=== PATIENT | female | born 1965 | race African-American/Black ===

== ENCOUNTER 2021-02-03 16:20 | Emergency (ER) | payer MEDICAID ==
[~2021-02-03] VITALS: Ht 175.3 cm; Wt 65.0 kg
[2021-02-03] MEDS ORDERED: MAGNESIUM/ALUMINUM HYDROXIDE/SIMETHICONE 30ML UDC PO STA (18:21)
[2021-02-03] MEDS ORDERED: SODIUM CHLORIDE 0.9% 1,000 ML IV ONE (18:30)
[2021-02-03 19:04] LABS: BASOPHILS % 0.7 % (0.0-2.0); EOSINOPHILS % 1.2 % (0.0-5.0); HEMATOCRIT. 36.8 % (36.0-48.0); HEMOGLOBIN. 12.5 g/dL (12.0-16.0); LYMPHOCYTES % 36.7 % (20.0-50.0); MEAN CORPUSCULAR HEMOGLOBIN 28.7 pg (28.0-32.0); MEAN CORPUSCULAR VOLUME 84.9 fL (81.0-99.0); MEAN PLATELET VOLUME 8.7 fl (7.4-10.4); MONOCYTES % 6.3 % (2.0-8.0); NEUTROPHILS % 55.1 % (40.0-76.0); PLATELET 69 x1000/uL (130-400); RED BLOOD CELL COUNT 4.34 mill/uL (4.2-5.4); RED CELL DISTRIBUTION WIDTH 19.1 % (11.6-14.6)
[2021-02-03 19:13] LABS: CHLORIDE 100 mEq/L (98-107)
[2021-02-03 19:27] LABS: B-HCG QUANTITATIVE 2 mIU/mL (<3)
[2021-02-03 19:34] LABS: ETHANOL BLOOD 497 mg/dL
[2021-02-03 22:38] VITALS: BP 121/80
== END 2021-02-03 22:00 | disposition home or self-care (01) ==
LOC: ER 16:20
DX: R10.12 Left upper quadrant pain (principal); F10.129 Alcohol abuse with intoxication, unspecified; K59.00 Constipation, unspecified; R11.10 Vomiting, unspecified; Y90.8 Blood alcohol level of 240 mg/100 ml or more
CPT/HCPCS: 36415; 74176; 80053; 80320; 83690; 84702; 85025; 99284; J7030; G0480

== ENCOUNTER 2021-06-06 19:01 | Inpatient (IN) | payer MEDICAID ==
[~2021-06-06] VITALS: Ht 154.2 cm; Wt 75.7 kg
[~2021-06-06 19:01] MED LIST: NEPVIT PO; THIA100T72 PO
[2021-06-06 20:38] LABS: CLARITY URINE CLOUDY (CLEAR); COLOR URINE DARK YELLOW (YELLOW); KETONES URINE NEGATIVE (NEGATIVE); LEUKOCYTE ESTERASE URINE TRACE (NEGATIVE); NITRITE URINE POSITIVE (NEGATIVE); OCCULT BLOOD URINE NEGATIVE (NEGATIVE); PROTEIN URINE NEGATIVE (NEGATIVE); SPECIFIC GRAVITY URINE 1.025 (1.005-1.030)
[2021-06-06 23:34] LABS: CHLORIDE 102 mEq/L (98-107)
[2021-06-06] MEDS ORDERED: FUROSEMIDE 20MG/2ML VIAL IVP ONE (23:45)
[2021-06-07] MEDS ORDERED: CLONIDINE 0.1MG TABLET PO PRN (00:15)
[2021-06-07] MEDS ORDERED: LORAZEPAM 2MG/ML CPJ IV PRN (00:15)
[2021-06-07] MEDS ORDERED: IPRATROPIUM/ALBUTEROL 0.5-3(2.5)MG/3ML NEB NEB PRN (00:15)
[2021-06-07] MEDS ORDERED: MAGNESIUM/ALUMINUM HYDROXIDE/SIMETHICONE 30ML UDC PO PRN (00:15)
[2021-06-07] MEDS ORDERED: MORPHINE SULFATE 2 MG/ML CPJ (NOT FOR IM USE) IV PRN (00:15)
[2021-06-07] MEDS ORDERED: ACETAMINOPHEN 650MG/20.3ML UDC GT PRN (00:15)
[2021-06-07] MEDS ORDERED: ONDANSETRON HCL 4MG/2ML INJ IV PRN (00:15)
[2021-06-07 00:27] LABS: BASOPHILS % 0.3 % (0.0-2.0); EOSINOPHILS % 0.8 % (0.0-5.0); HEMATOCRIT. 25.8 % (36.0-48.0); HEMOGLOBIN. 8.9 g/dL (12.0-16.0); LYMPHOCYTES % 18.4 % (20.0-50.0); MEAN CORPUSCULAR HEMOGLOBIN 34.2 pg (28.0-32.0); MEAN CORPUSCULAR VOLUME 99.4 fL (81.0-99.0); NEUTROPHILS % 71.5 % (40.0-76.0); RED BLOOD CELL COUNT 2.59 mill/uL (4.2-5.4); RED CELL DISTRIBUTION WIDTH 18.2 % (11.6-14.6)
[2021-06-07 00:45] LABS: MEAN PLATELET VOLUME 7.8 fl (7.4-10.4); PLATELET 149 x1000/uL (130-400)
[2021-06-07] MEDS ORDERED: NALOXONE HCL 0.4MG/ML VIAL IV PRN (00:45)
[2021-06-07] MEDS ORDERED: FOLIC ACID 1 MG, THIAMINE HCL 100 MG in SODIUM CHLORIDE 0.9% 1,000 ML IV NR (01:00)
[2021-06-07] MEDS: MULTIVITAMINS,THER W-MINERALS TABLET PO SCH (01:35)
[2021-06-07 09:00] VITALS: BP 108/73
[2021-06-07] MEDS ORDERED: FUROSEMIDE 40MG/4ML VIAL IV SCH (09:00)
[2021-06-07] MEDS ORDERED: ENOXAPARIN 40MG/0.4ML SYR SUBCUT SCH (09:00)
[2021-06-07 12:00] VITALS: BP 121/78
[2021-06-07 12:49] LABS: INR 1.9; PROTHROMBIN TIME 19.1 sec (9.6-11.0)
[2021-06-07] MEDS: CEFTRIAXONE 1,000 MG in DEXTROSE 5% WATER 50 ML IV SCH (12:52)
[2021-06-07] MEDS: SPIRONOLACTONE 50MG TABLET PO SCH (12:52)
[2021-06-07 13:07] LABS: HEPATITIS B SURFACE ANTIGEN NEGATIVE
[2021-06-07 16:00] VITALS: BP 123/70
[2021-06-07] MEDS: FUROSEMIDE 40MG/4ML VIAL IV SCH (16:30)
[2021-06-07] MEDS: HYDROCODONE/ACETAMINOPHEN 5/325MG TABLET PO PRN (16:35)
[2021-06-07 20:00] VITALS: BP 114/68
[2021-06-08] VITALS: BP 125/72
[2021-06-08] MEDS: HYDROCODONE/ACETAMINOPHEN 5/325MG TABLET PO PRN (01:07)
[2021-06-08 04:00] VITALS: BP 127/70
[2021-06-08 06:29] LABS: BASOPHILS % 0.5 % (0.0-2.0); EOSINOPHILS % 1.3 % (0.0-5.0); HEMATOCRIT. 23.9 % (36.0-48.0); HEMOGLOBIN. 8.2 g/dL (12.0-16.0); LYMPHOCYTES % 22.1 % (20.0-50.0); MEAN CORPUSCULAR HEMOGLOBIN 34.4 pg (28.0-32.0); MEAN CORPUSCULAR VOLUME 99.8 fL (81.0-99.0); MEAN PLATELET VOLUME 8.1 fl (7.4-10.4); MONOCYTES % 9.5 % (2.0-8.0); NEUTROPHILS % 66.6 % (40.0-76.0); PLATELET 145 x1000/uL (130-400); RED BLOOD CELL COUNT 2.39 mill/uL (4.2-5.4); RED CELL DISTRIBUTION WIDTH 18.2 % (11.6-14.6)
[2021-06-08 07:46] LABS: CHLORIDE 102 mEq/L (98-107)
[2021-06-08 08:00] VITALS: BP 142/77
[2021-06-08] MEDS: MULTIVITAMINS,THER W-MINERALS TABLET PO SCH (08:21)
[2021-06-08] MEDS: SPIRONOLACTONE 50MG TABLET PO SCH (08:21)
[2021-06-08] MEDS: CEFTRIAXONE 1,000 MG in DEXTROSE 5% WATER 50 ML IV SCH (08:21)
[2021-06-08] MEDS: FUROSEMIDE 40MG/4ML VIAL IV SCH (08:22)
[2021-06-08] MEDS ORDERED: POTASSIUM CHLORIDE 20MEQ TABLET SR PO NR (09:00)
[2021-06-08] MEDS ORDERED: MAGNESIUM OXIDE 400MG TABLET PO SCH (09:00)
[2021-06-08] MEDS ORDERED: LEVO500T89 MT (10:00)
[2021-06-08] MEDS ORDERED: ALD50 PO (10:00)
[2021-06-08] MEDS ORDERED: THIA100T72 PO (10:00)
[2021-06-08] MEDS ORDERED: FURO-151 MT (10:00)
[2021-06-08] MEDS ORDERED: PHYTONADIONE 10MG/ML AMP SUBCUT SCH (10:45)
[2021-06-08 11:41] VITALS: BP 142/77
== END 2021-06-08 13:05 | disposition home or self-care (01) ==
LOC: ER 19:01 → MICUSO 23:52 → 8WST 06-07 09:00
PROVIDERS: ADMIT Internal Medicine Nephrology; ATTEND Internal Medicine Nephrology
DX: K74.60 Unspecified cirrhosis of liver (principal); E43 Unspecified severe protein-calorie malnutrition; D68.9 Coagulation defect, unspecified; E87.1 Hypo-osmolality and hyponatremia; R18.8 Other ascites; N39.0 Urinary tract infection, site not specified; R74.01 Elevation of levels of liver transaminase levels; Z20.822 Contact with and (suspected) exposure to COVID-19; D64.9 Anemia, unspecified; F10.20 Alcohol dependence, uncomplicated; Z79.899 Other long term (current) drug therapy; Z90.49 Acquired absence of other specified parts of digestive tract; Z87.891 Personal history of nicotine dependence; Z68.31 Body mass index [BMI] 31.0-31.9, adult
CPT/HCPCS: 36415; 71045; 76700; 80048; 80053; 81003; 83735; 83880; 84100; 84484; 85025; 86705; 86709; 86803; 87340; 87426; 93005; 99285; J0696; J1650; J1940; J2270; J3411; J3490; J7030; J7040; J7060

== ENCOUNTER 2021-12-02 21:56 | Emergency (ER) | payer MEDICAID ==
[~2021-12-02] VITALS: Ht 167.6 cm; Wt 64.0 kg
[~2021-12-02 21:56] MED LIST changes: +ALD50 PO; +FURO-151 MT; +LEVO500T89 MT
[2021-12-02 23:42] LABS: BASOPHILS % 0.8 % (0.0-2.0); EOSINOPHILS % 1.6 % (0.0-5.0); HEMATOCRIT. 32.4 % (36.0-48.0); HEMOGLOBIN. 10.9 g/dL (12.0-16.0); LYMPHOCYTES % 34.9 % (20.0-50.0); MEAN CORPUSCULAR HEMOGLOBIN 29.3 pg (28.0-32.0); MEAN PLATELET VOLUME 8.9 fl (7.4-10.4); MONOCYTES % 12.4 % (2.0-8.0); NEUTROPHILS % 50.3 % (40.0-76.0); PLATELET 84 x1000/uL (130-400); RED BLOOD CELL COUNT 3.72 mill/uL (4.2-5.4); RED CELL DISTRIBUTION WIDTH 19.6 % (11.6-14.6)
[2021-12-02 23:50] LABS: CHLORIDE 109 mEq/L (98-107)
[2021-12-03 00:21] LABS: ETHANOL BLOOD 457 mg/dL
[2021-12-03 01:15] LABS: CLARITY URINE CLEAR (CLEAR); COLOR URINE YELLOW (YELLOW); KETONES URINE NEGATIVE (NEGATIVE); LEUKOCYTE ESTERASE URINE TRACE (NEGATIVE); NITRITE URINE NEGATIVE (NEGATIVE); OCCULT BLOOD URINE NEGATIVE (NEGATIVE); PH URINE 6.5 (4.5-8.0); PROTEIN URINE NEGATIVE (NEGATIVE); SPECIFIC GRAVITY URINE 1.004 (1.005-1.030)
[2021-12-03] MEDS ORDERED: ACETAMINOPHEN 325MG TABLET PO ONE (01:15)
[2021-12-03 03:39] VITALS: BP 142/90
== END 2021-12-03 03:44 | disposition home or self-care (01) ==
LOC: ER 21:56
DX: R10.13 Epigastric pain (principal); F10.229 Alcohol dependence with intoxication, unspecified; Y90.8 Blood alcohol level of 240 mg/100 ml or more; M79.18 Myalgia, other site; D69.6 Thrombocytopenia, unspecified; D53.9 Nutritional anemia, unspecified; R79.89 Other specified abnormal findings of blood chemistry; Z87.19 Personal history of other diseases of the digestive system
CPT/HCPCS: 36415; 80053; 80320; 81003; 85025; 99283; G0480

== ENCOUNTER 2022-03-16 17:26 | Emergency (ER) | payer MEDICAID ==
[~2022-03-16] VITALS: Ht 175.3 cm; Wt 60.0 kg
[~2022-03-16 17:26] MED LIST changes: -LEVO500T89 MT; +LEVO500T90 MT
[2022-03-17] MEDS ORDERED: ONDANSETRON 4MG ODT PO ONE (03:30)
[2022-03-17 04:24] LABS: HEMOGLOBIN. 12.2 g/dL (12.0-16.0); MEAN CORPUSCULAR HEMOGLOBIN 29.8 pg (28.0-32.0); MEAN CORPUSCULAR VOLUME 90.2 fL (81.0-99.0); PLATELET 134 x1000/uL (130-400); RED CELL DISTRIBUTION WIDTH 18.5 % (11.6-14.6)
[2022-03-17 04:25] LABS: CLARITY URINE CLEAR (CLEAR); COLOR URINE DARK YELLOW (YELLOW); KETONES URINE NEGATIVE (NEGATIVE); LEUKOCYTE ESTERASE URINE TRACE (NEGATIVE); NITRITE URINE NEGATIVE (NEGATIVE); OCCULT BLOOD URINE NEGATIVE (NEGATIVE); PROTEIN URINE NEGATIVE (NEGATIVE); SPECIFIC GRAVITY URINE 1.015 (1.005-1.030)
[2022-03-17 04:29] VITALS: BP 166/90
[2022-03-17] MEDS ORDERED: MORPHINE SULFATE 4 MG/ML CPJ (NOT FOR IM USE) IV ONE (04:30)
[2022-03-17] MEDS ORDERED: SODIUM CHLORIDE 0.9% 1,000 ML IV ONE (04:30)
[2022-03-17 04:33] LABS: CHLORIDE 109 mEq/L (98-107)
[2022-03-17 04:54] LABS: PLATELET ESTIMATE NORMAL
[2022-03-17 05:17] LABS: INR 1.4
[2022-03-17] MEDS ORDERED: IBUP-2029 MT (06:32)
== END 2022-03-17 07:11 | disposition home or self-care (01) ==
LOC: ER 17:26
DX: K85.90 Acute pancreatitis without necrosis or infection, unspecified (principal); K86.1 Other chronic pancreatitis; F10.20 Alcohol dependence, uncomplicated; Y90.9 Presence of alcohol in blood, level not specified; F41.9 Anxiety disorder, unspecified; Z90.49 Acquired absence of other specified parts of digestive tract
CPT/HCPCS: 36415; 80053; 81003; 83690; 85025; 85610; 96361; 96374; 99283; J2270; J7030; Q0162